=== PATIENT | male | born 1975 ===

== ENCOUNTER 2024-02-04 09:54 | Emergency (ER) | payer SELFPAY ==
[~2024-02-04] VITALS: Ht 172.7 cm; Wt 95.5 kg
[2024-02-04] MEDS ORDERED: Morphine 4 MG/ML VIAL IV ONE (10:30)
[2024-02-04 10:52] LABS: BASO # 0.1 K/mm3 (0.0-0.2); BASO % 0.7 % (0.0-2.0); EOS # 0.2 K/mm3 (0.0-0.7); EOS % 1.7 % (0.0-4.0); GRAN # 7.3 K/mm3 (1.4-6.5); GRAN % 70.7 % (42.2-75.2); HEMATOCRIT 43.5 % (42.0-52.0); LYMPH # 1.8 K/mm3 (1.2-3.4); LYMPH % 17.6 % (20.0-51.0); MEAN CELL VOLUME 93 fl (80.0-100.0); MEAN CORPUSCULAR HEMOGLOBIN 32 pg (27-31); MEAN CORPUSCULAR HGB CONC 35 g/dl (33.0-37.0); MEAN PLATELET VOLUME 10.7 fl (7.4-10.4); MONO # 0.9 K/mm3 (0.1-0.6); PLATELET COUNT 248 K/mm3 (130-400); RED BLOOD COUNT 4.69 M/mm3 (4.20-5.60); REDCELL DISTRIBUTION WIDTH-CV 13.3 % (11.5-14.5)
[2024-02-04 10:59] LABS: ERYTHROCYTE SEDIMENTATION RATE 24 mm/hr (0-15)
[2024-02-04 11:33] LABS: ALBUMIN 3.8 g/dL (3.5-5.0); BILIRUBIN,TOTAL 0.7 mg/dL (0.2-1.2); C-REACTIVE PROTEIN 1.06 mg/dL (0.00-0.50); CALCIUM 9.4 mg/dL (8.4-10.2); CREATININE, serum 0.83 mg/dL (0.72-1.25); POTASSIUM 3.5 mEq/L (3.5-4.5); TOTAL PROTEIN 7.6 g/dl (6.2-8.1)
[2024-02-04] MEDS ORDERED: DOXYCYCLINE 10100 MG PO (12:27)
[2024-02-04] MEDS ORDERED: PERCOCET 325 MG1 TA2 PO (12:28)
[2024-02-04 12:40] VITALS: BP 117/72; PULSE 81
== END 2024-02-04 12:42 | disposition home or self-care (01) ==
LOC: COL.ER 09:54
PROVIDERS: Physician Assistant
DX: M25.532 Pain in left wrist (principal); M79.89 Other specified soft tissue disorders
CPT/HCPCS: J2270